=== PATIENT | male | born 1950 | race Caucasian/White ===

== ENCOUNTER 2019-01-28 07:41 | Day surgery (SDC) | payer MEDICARE, OTHER ==
[~2019-01-28 07:41] MED LIST: Lactated Ringers 1,000 ML IV SCH; Lidocaine 2% 5 ML SDV ONE; Propofol 200 MG/20 ML SDV ONE; fentaNYL 100 MCG/2 ML SDV ONE
--- NOTE | 2019-01-28 08:14 | PCM.PREANE ---
Preanesthetic Assessment - Anesthesia/Transfusion/Family Hx Anesthesia History: Prior Anesthesia Without Reaction (orif ankle 20 yr ago) Family History of Anesthesia Reaction: No Transfusion History: No Prior Transfusion(s) - Review of Systems General: No Symptoms Pulmonary: No Symptoms Cardiovascular: No Symptoms Neurological: No Symptoms Other: Reports: None - Physical Assessment Height: 5 ft 11 in Weight: 84.368 kg ASA Class: 2 Mental Status: Alert & Oriented x3 Airway Class: Mallampati = 1 Dentition: Reports: Normal Dentition ROM/Head Extension: Full Lungs: Clear to Auscultation, Normal Respiratory Effort - Allergies Allergies/Adverse Reactions: Allergies Allergy/AdvReac Type Severity Reaction Status Date / Time No Known Allergies Allergy Verified 01/22/19 11:15 - Blood Blood Available: Yes - Anesthesia Plan Pre-Op Medication Ordered: None - Acknowledgements Anesthesia Type Planned: General Anesthesia Pt an Appropriate Candidate for the Planned Anesthesia: Yes Additional Comments: drew prob list: dx colonoscopy for hx rectal bleeding PLAN: tiva PreAnesthesia Questionnaire HEENT History: Reports: Other (See Below) Other HEENT History: wears glasses Musculoskeletal History: Reports: Fracture Neurological History: Reports: Concussion - Past Surgical History Head Surgeries/Procedures: Reports: None Male Surgical History: Reports: Vasectomy Other Male Surgeries/Procedures: reversal of Vasectomy Musculoskeletal Surgical History: Reports: ORIF Other Musculoskeletal Surgeries/Procedures:: hx of ORIF right ankle (has plate and screws) - SUBSTANCE USE Smoking Status *Q: Never Smoker Recreational Drug Use History: No - HOME MEDS Home Medications: Home Meds . [No Known Home Meds] 01/22/19 [History] - CURRENT (IN HOUSE) MEDS Current Meds: Current Medications Lactated Ringer's (Ringers, Lactated) 1,000 mls @ 125 mls/hr IV ASDIRECTED BENJA Discontinued Medications Fentanyl (Sublimaze) Confirm Administered Dose 100 mcg .ROUTE .STK-MED ONE Stop: 01/28/19 07:11 Lidocaine (Xylocaine-Mpf 2%) Confirm Administered Dose 5 ml .ROUTE .STK-MED ONE Stop: 01/28/19 07:11 Propofol (Diprivan 20 Ml) Confirm Administered Dose 400 mg .ROUTE .STK-MED ONE Stop: 01/28/19 07:11
--- NOTE | 2019-01-28 09:11 | PCM.OPNOTE ---
- General Post-Op/Procedure Note Date of Surgery/Procedure: 01/28/19 Operative Procedure(s): Colonoscopy with cold cecal and descending colon polypectomy Pre Op Diagnosis: Intermittent rectal bleeding Post-Op Diagnosis: Cecal polyp. Descending colon polyp. Sigmoid diverticulosis. Primary Surgeon: Martín Merino Condition: Good Free Text/Narrative:: DICTATION 248792 CPT CODE 38601
[2019-01-28] MEDS ORDERED: Lactated Ringers 1,000 ML IV SCH (09:15)
--- NOTE | 2019-01-28 09:47 | PCM.POSTAN ---
POST ANESTHESIA ASSESSMENT - MENTAL STATUS Mental Status: Alert, Oriented - VITAL SIGNS Vital Signs: Last Vital Signs Temp 98.6 F 01/28/19 07:45 Pulse 56 L 01/28/19 09:22 Resp 13 01/28/19 09:22 BP 106/62 01/28/19 09:22 Pulse Ox 96 01/28/19 09:22 - RESPIRATORY Respiratory Status: Respiratory Rate WNL, Airway Patent, O2 Saturation Stable - CARDIOVASCULAR CV Status: Pulse Rate WNL, Blood Pressure Stable - GASTROINTESTINAL GI Status: No Symptoms - POST OP HYDRATION Hydration Status: Adequate & Stable
--- NOTE | 2019-01-28 09:48 | PCM48HPAN ---
Post Anesthesia Note - EVALUATION WITHIN 48HRS OF ANESTHETIC Vital Signs in Normal Range: Yes Patient Participated in Evaluation: Yes Respiratory Function Stable: Yes Airway Patent: Yes Cardiovascular Function Stable: Yes Hydration Status Stable: Yes Pain Control Satisfactory: Yes Nausea and Vomiting Control Satisfactory: Yes Mental Status Recovered: Yes Vital Signs: Last Vital Signs Temp 98.6 F 01/28/19 07:45 Pulse 56 L 01/28/19 09:22 Resp 13 01/28/19 09:22 BP 106/62 01/28/19 09:22 Pulse Ox 96 01/28/19 09:22
--- NOTE | 2019-01-29 10:31 | OR ---
SURGEON: Martín Merino M.D. DATE OF PROCEDURE: 01/28/2019 OPERATION PERFORMED: Colonoscopy with cold cecal and descending colon polypectomy. PRIMARY SURGEON: Martín Merino M.D. ANESTHESIA: MAC. ASA CLASSIFICATION: II PREOPERATIVE DIAGNOSIS: Rectal bleeding. POSTOPERATIVE DIAGNOSES: 1. Cecal polyp. 2. Descending colon polyp. 3. Sigmoid diverticulosis. DESCRIPTION OF PROCEDURE: The patient was taken to the endoscopy room and positioned on the endoscopy table in the left lateral decubitus position. Time-out was called for appropriate identification of the patient and procedure. Monitored anesthesia care was provided. The colonoscope was inserted into the rectum, and as we were advancing the colonoscope through the descending colon, one polyp was encountered. This was removed with multiple bites of the cold biopsy forceps. The colonoscope was then further advanced without difficulty to the cecum. Upon entering the cecum, there was a 2 cm polyp with no stalk. I was able to remove this with multiple bites of the cold biopsy forceps. No significant bleeding was noted while that was being done. The colonoscope was then retroflexed to visualize the ascending colon from below. Having done that, the colonoscope was straightened and slowly withdrawn. There was no appreciable bleeding noted from the cecal polyp. The ascending colon, hepatic flexure, transverse colon, splenic flexure, descending colon showed no tumors, polyps, diverticula, or angiodysplastic changes. A few small scattered diverticula were noted in the sigmoid colon. No stricture, spasm, or bleeding was noted. The colonoscope was then withdrawn to the rectum. No other polyps were encountered and there were no sigmoid polyps. The colonoscope was retroflexed to visualize the anal orifice from above. No acute hemorrhoidal changes were noted. The colonoscope was then straightened, the rectum aspirated, and the colonoscope removed. The patient tolerated the procedure well and was taken to recovery room in stable condition. MARTHA / MARIA DEL CARMEN /[id number]
== END 2019-01-28 09:55 | disposition home or self-care (01) ==
LOC: MW.SDS 07:41
PROVIDERS: ATTEND Surgery
DX: K62.5 Hemorrhage of anus and rectum (principal); K63.5 Polyp of colon; D12.0 Benign neoplasm of cecum; K57.30 Diverticulosis of large intestine without perforation or abscess without bleeding
CPT/HCPCS: 45380; J2001; J2704; J3010; J7120

== ENCOUNTER 2020-06-08 08:37 | Day surgery (SDC) | payer MEDICARE, OTHER ==
[~2020-06-08 08:37] MED LIST changes: -Lidocaine 2% 5 ML SDV ONE; -Propofol 200 MG/20 ML SDV ONE; +ceFAZolin 2 GM in Premix Bag 1 BAG IV SCH; -fentaNYL 100 MCG/2 ML SDV ONE
--- NOTE | 2020-06-08 09:33 | PCM.PREANE ---
Preanesthetic Assessment - Anesthesia/Transfusion/Family Hx Anesthesia History: Prior Anesthesia Without Reaction Family History of Anesthesia Reaction: No Transfusion History: No Prior Transfusion(s) Intubation History: Unknown - Review of Systems General: No Symptoms Pulmonary: No Symptoms Cardiovascular: No Symptoms Gastrointestinal: No Symptoms Neurological: No Symptoms Other: Reports: None - Physical Assessment Vital Signs: Last Vital Signs Temp 36.4 C 06/08/20 08:50 Pulse 65 06/08/20 08:50 Resp 16 06/08/20 08:50 BP 141/83 H 06/08/20 08:50 Pulse Ox 98 06/08/20 08:50 Height: 5 ft 11 in Weight: 86.183 kg ASA Class: 2 Mental Status: Alert & Oriented x3 Airway Class: Mallampati = 1 Dentition: Reports: Normal Dentition Thyro-Mental Finger Breadths: 3 Mouth Opening Finger Breadths: 3 ROM/Head Extension: Full Lungs: Clear to Auscultation, Normal Respiratory Effort Cardiovascular: Regular Rate, Regular Rhythm - Allergies Allergies/Adverse Reactions: Allergies Allergy/AdvReac Type Severity Reaction Status Date / Time No Known Allergies Allergy Verified 06/08/20 09:18 - Blood Blood Available: No - Anesthesia Plan Pre-Op Medication Ordered: None - Acknowledgements Anesthesia Type Planned: General Anesthesia Pt an Appropriate Candidate for the Planned Anesthesia: Yes Alternatives and Risks of Anesthesia Discussed w Pt/Guardian: Yes Pt/Guardian Understands and Agrees with Anesthesia Plan: Yes PreAnesthesia Questionnaire HEENT History: Reports: Hard of Hearing, Other (See Below) Other HEENT History: wears glasses, slightly hard of hearing Gastrointestinal History: Reports: Colon Polyp, Diverticulosis, Other (See Below) Other Gastrointestinal History: occasional heartburn- takes Tums Musculoskeletal History: Reports: Fracture Other Musculoskeletal History: hx of fx right ankle Neurological History: Reports: Concussion - Past Surgical History Head Surgeries/Procedures: Reports: None HEENT Surgical History: Reports: Oral Surgery Other HEENT Surgeries/Procedures: has one upper back dental implant GI Surgical History: Reports: Colonoscopy Male Surgical History: Reports: Vasectomy Other Male Surgeries/Procedures: reversal of Vasectomy Musculoskeletal Surgical History: Reports: ORIF, Shoulder Surgery Other Musculoskeletal Surgeries/Procedures:: hx of ORIF right ankle (has hardware) and "clean out" of right shoulder - SUBSTANCE USE Tobacco Use Status *Q: Never Tobacco User Recreational Drug Use History: No - HOME MEDS Home Medications: Home Meds . [No Known Home Meds] 01/22/19 [History] - CURRENT (IN HOUSE) MEDS Current Meds: Current Medications Cefazolin Sodium/Dextrose 2 gm (/ Premix) 50 mls @ 100 mls/hr IV ONETIME BENJA Lactated Ringer's (Ringers, Lactated) 1,000 mls @ 125 mls/hr IV ASDIRECTED [facility] Last Admin: 06/08/20 08:56 Dose: 125 mls/hr Documented by:
[2020-06-08] MEDS ORDERED: Ondansetron 4 MG/2 ML SDV ONE (11:36)
[2020-06-08] MEDS ORDERED: Propofol 200 MG/20 ML SDV ONE (11:36)
[2020-06-08] MEDS ORDERED: Lidocaine 2% 5 ML SDV ONE (11:36)
[2020-06-08] MEDS ORDERED: Rocuronium Bromide 50 MG/5 ML Syringe ONE (11:36)
[2020-06-08] MEDS ORDERED: Glycopyrrolate 0.2 MG/ML SDV ONE (11:36)
[2020-06-08] MEDS ORDERED: fentaNYL 250 MCG/5 ML SDV ONE (11:36)
[2020-06-08] MEDS ORDERED: Dexamethasone 4 MG/ML 5 ML MDV ONE (11:36)
[2020-06-08] MEDS ORDERED: Bupivacaine 0.5% 10 ML SDV ONE (12:25)
[2020-06-08] MEDS ORDERED: ceFAZolin 1 GM Vial ONE (12:26)
[2020-06-08] MEDS ORDERED: Morphine 10 MG/ML Syringe IVPUSH PRN (14:21)
[2020-06-08] MEDS ORDERED: Ondansetron 4 MG/2 ML SDV IVPUSH PRN (14:21)
[2020-06-08] MEDS ORDERED: Acetaminophen/HYDROcodone 325-5 MG Tab PO PRN (14:21)
--- NOTE | 2020-06-08 14:23 | PCM.OPNOTE ---
- General Post-Op/Procedure Note Date of Surgery/Procedure: 06/08/20 Operative Procedure(s): Repair direct left inguinal hernia with extra large Bard PerFix plug and patch Pre Op Diagnosis: Reducible left inguinal hernia Post-Op Diagnosis: Reducible direct left inguinal hernia Anesthesia Technique: General ET Tube (ASA II) Primary Surgeon: Martín Merino Clinical Documentation Manager: Marta Hernandez Fluid Replacement, Intraop: 1,300 EBL in mLs: 10 Condition: Good Free Text/Narrative:: DICTATION [id number] CPT CODE 43070
[2020-06-08] MEDS ORDERED: Lactated Ringers 1,000 ML IV SCH (14:30)
--- NOTE | 2020-06-08 15:06 | OR ---
SURGEON: Martín Merino M.D. DATE OF PROCEDURE: 06/08/2020 OPERATION PERFORMED: Left inguinal hernia repair with extra-large Bard PerFix plug and patch. PRIMARY SURGEON: Martín Merino M.D. MED ADMIN: ANTIONETTE Boothe student. ANESTHESIA: General endotracheal. ASA CLASSIFICATION: II. PREOPERATIVE DIAGNOSIS: Large reducible left inguinal hernia. POSTOPERATIVE DIAGNOSIS: Large reducible left inguinal hernia. ESTIMATED BLOOD LOSS: 10 mL. INTRAOPERATIVE FLUID REPLACEMENT: 1300 mL of crystalloid. DESCRIPTION OF PROCEDURE: The patient was taken to the operating room, placed on the operating table in the supine position. Surgical site had been marked with the patient's assistance prior to entering the operating room. Sequential compression boots were placed. Following satisfactory attainment of general endotracheal anesthesia, the abdomen was prepped with DuraPrep solution and sterile drapes were applied. Skin incision was marked out in the left inguinal crease. The skin was then infiltrated with 10 mL of 0.5% Marcaine solution. Skin incision was made and deepened through the subcutaneous tissue obtaining hemostasis with the use of electrocautery. Dissection was carried down to the external oblique fascia, which was attenuated. This was opened in the direction of its fibers with care taken to preserve and protect the ilioinguinal nerve. The floor was very weak. The hernia sac was able to be reduced and was of a direct nature. Once that was all accomplished, the transversalis fascia was cleared off as were Horace's ligament, the inguinal ligament. The extra-large Bard PerFix plug and patch was brought to the operating table and soaked in 1% Ancef solution. The plug was placed medially and secured with interrupted 0 Ethibond sutures. The patch was placed over this and secured again with interrupted 0 Ethibond sutures beginning superiorly and medially to transversalis fascia and inferiorly to Horace's ligament transitioning to the inguinal ligament. The wings of the patch were brought around the cord and again secured laterally with 0 Ethibond suture. All sutures were tied down, and the patient given a Valsalva maneuver to 35 cm. The repair felt solid. The wound was then irrigated with Ancef solution. The cord was returned to its anatomic location. The external oblique fascia was reapproximated with running 3-0 Vicryl. Shayy's fascia was reapproximated with running 3-0 Vicryl. Skin edges were reapproximated with subcuticular 4-0 Monocryl reinforced with half-inch Steri-Strips. Sterile Tegaderm pad was placed as a dressing. Sponge, needle, and instrument counts were all correct. Following emergence from anesthesia and extubation, the patient was taken to recovery room in stable condition. MARTHA JOYCE /[id number]
--- NOTE | 2020-06-08 15:07 | PCM.POSTAN ---
POST ANESTHESIA ASSESSMENT - MENTAL STATUS Mental Status: Alert, Oriented - VITAL SIGNS Vital Signs: Last Vital Signs Temp 36.3 C 06/08/20 14:45 Pulse 54 L 06/08/20 15:00 Resp 14 06/08/20 15:00 BP 132/68 06/08/20 15:00 Pulse Ox 94 L 06/08/20 15:00 - RESPIRATORY Respiratory Status: Respiratory Rate WNL, Airway Patent, O2 Saturation Stable - CARDIOVASCULAR CV Status: Pulse Rate WNL, Blood Pressure Stable - GASTROINTESTINAL GI Status: No Symptoms - PAIN Pain Score: 2 - POST OP HYDRATION Hydration Status: Adequate & Stable - OBSERVATIONS Free Text/Narrative:: No anesthesia problems
--- NOTE | 2020-06-08 15:40 | PCM48HPAN ---
Post Anesthesia Note - EVALUATION WITHIN 48HRS OF ANESTHETIC Vital Signs in Normal Range: Yes Patient Participated in Evaluation: Yes Respiratory Function Stable: Yes Airway Patent: Yes Cardiovascular Function Stable: Yes Hydration Status Stable: Yes Pain Control Satisfactory: Yes Nausea and Vomiting Control Satisfactory: Yes Mental Status Recovered: Yes Vital Signs: Last Vital Signs Temp 36.3 C 06/08/20 14:45 Pulse 62 06/08/20 15:30 Resp 16 06/08/20 15:30 BP 124/70 06/08/20 15:30 Pulse Ox 95 06/08/20 15:30 - COMMENTS/OBSERVATIONS Free Text/Narrative:: No anesthesia problems
== END 2020-06-08 17:54 | disposition home or self-care (01) ==
LOC: MW.SDS 08:37
PROVIDERS: ATTEND Surgery
DX: K40.90 Unilateral inguinal hernia, without obstruction or gangrene, not specified as recurrent (principal); Z98.890 Other specified postprocedural states
CPT/HCPCS: 49505; C1781; J0131; J0690; J1100; J2704; J3010; J3490; J7120; 00750; J2405